=== PATIENT | female | born 1965 | race Caucasian/White ===

== ENCOUNTER 2023-06-19 08:43 | Emergency (ER) | payer SELFPAY ==
--- NOTE | ~2023-06-19 | XR_ITS ---
EXAMINATION: XR ankle LT min 3V DATE: 06/19/2023 09:13 INDICATION: Medial left ankle pain. Injury. TECHNIQUE: 4 views of left ankle were obtained. COMPARISON: None. FINDINGS: Bone alignment is normal. There is an old healed fracture of distal fibular diaphysis. No a cute fracture. Joint spaces are normal. There is ankle soft tissue swelling. IMPRESSION: 1. No acute fracture. Reviewed, dictated and finalized at location E. IMPRESSION: 1. No acute fracture.
[2023-06-19 08:56] VITALS: BP 136/74; PULSE 85; RESP 16; TEMP 36.7; O2SAT 99
--- NOTE | 2023-06-19 09:05 | ED.GENADULT ---
HPI - General Adult General Chief complaint: Extremity Injury, Lower Stated complaint: Right Ankle Irritation Source: patient Mode of arrival: ambulatory Limitations: no limitations History of Present Illness HPI narrative: 57-year-old female presented for complaint of left ankle pain after injury this morning. She states she slipped while trying to catch the bus, and landed on her tailbone, but rolled the ankle. She has been able to bear weight but reports pain to the outer part of the ankle and top of the foot. Denies bruising or swelling or deformity. Denies any other complaints of pain. Has not taken anything for pain. Related Data Allergies Allergy/AdvReac Type Severity Reaction Status Date / Time morphine Allergy Unknown Unknown Verified 06/19/23 09:46 Review of Systems Review of Systems: CONSTITUTIONAL: Denies body aches, fever, chills EYES: Denies visual changes ENT: Denies rhinorrhea, congestion CARDIOVASCULAR: Denies chest pain, palpitations, or edema. RESPIRATORY: Denies cough or dyspnea. GASTROINTESTINAL: Denies abdominal pain, nausea, vomiting, or diarrhea. SKIN: Denies rash, itching, or wounds. MUSCULOSKELETAL: Reports left ankle pain Denies back pain, or myalgia. NEUROLOGIC: Denies headache, numbness, tingling, or weakness. All systems reviewed & are unremarkable except as noted in HPI and below PMFSH Past Medical History Medical History (Updated 06/19/23 @ 09:55 by Natalia Vázquez, DION) No pertinent past medical history Comments At time of signature, I have reviewed and agree with nursing past medical, surgical, social and family history unless otherwise noted. Please see nursing chart for further information. There is no relevant family history pertinent to the presenting complaint Exam Narrative: GENERAL: Well-appearing, and in no acute distress. HEAD: Normocephalic, atraumatic. CHEST: Speaks in full sentences. No respiratory distress. HEART: Regular rate and rhythm. Normal and equal peripheral pulses. EXTREMITIES: Mild left lateral malleolus tenderness. Left foot has normal strength and sensation, normal range of motion with flexion/extension/rotation, but endorses pain with movement of the ankle. No ecchymosis, No open wounds or obvious deformity; alignment normal, pulse palpable and equal bilaterally, skin warm, dry, pink. Capillary refill less than 3 seconds. SKIN: Warm, dry, no rash. NEURO: Alert and oriented x3. PSYCH: Normal mood and affect Course Course Emergency Course: Patient is aware of diagnosis, understands and agrees to treatment plan. Anticipatory guidance given. Patient agrees to follow-up as directed and is aware of reasons to seek care at the emergency department. Portions of this record may have been created with voice recognition software Level of Care: Express Care Visit Vital Signs Vital signs: Vital Signs Temperature 98.0 F 06/19/23 08:56 Pulse Rate 85 06/19/23 08:56 Respiratory Rate 16 06/19/23 08:56 Blood Pressure 136/74 06/19/23 08:56 Pulse Oximetry 99 06/19/23 08:56 Oxygen Delivery Room Air 06/19/23 08:56 Temperature 98.0 F 06/19/23 08:56 Pulse Rate 85 06/19/23 08:56 Respiratory Rate 16 06/19/23 08:56 Blood Pressure 136/74 06/19/23 08:56 Pulse Oximetry 99 06/19/23 08:56 Oxygen Delivery Room Air 06/19/23 08:56 Reviewed Medical Decision Making MDM Narrative Medical decision making narrative: Discussed physical exam findings And reviewed x-ray with patient. Fred wrap applied. Advised supportive measures and signs/symptoms to go to the ER. Pt is appropriate for outpt treatment and f/u with pcp. Differential Diagnosis Differential Diagnosis: ankle sprain, strain, fracture, tendinitis, arthritis Vital Signs Vital Signs: Vital Signs Temperature 98.0 F 06/19/23 08:56 Pulse Rate 85 06/19/23 08:56 Respiratory Rate 16 06/19/23 08:56 Blood Pressure 136/74 06/19/23 08:56 Pulse
[2023-06-19] MEDS: IBUPROFEN 400 MG TABLET 800 MG PO (09:51)
== END 2023-06-19 10:00 | disposition home or self-care (01) ==
PROVIDERS: Emergency Provider Nurse Practitioner Family; PCP Family Medicine
DX: S93.402A Sprain of unspecified ligament of left ankle, initial encounter (principal); S96.912A Strain of unspecified muscle and tendon at ankle and foot level, left foot, initial encounter; W01.0XXA Fall on same level from slipping, tripping and stumbling without subsequent striking against object, initial encounter; E78.00 Pure hypercholesterolemia, unspecified; K21.9 Gastro-esophageal reflux disease without esophagitis
CPT/HCPCS: 73610; 99213; A9270; G0463